=== PATIENT | female | born 1965 | race Caucasian/White ===

== ENCOUNTER → 2023-03-18 12:18 | Outpatient (CLI) | payer BC, SELFPAY ==
--- NOTE | ~2023-03-18 | US_ITS ---
EXAMINATION: US thyroid DATE: 03/18/2023 13:00 INDICATION: Thyroid nodule. TECHNIQUE: Multiple ultrasound images of the thyroid were obtained. COMPARISON: 12/19/2018 FINDINGS: The right thyroid lobe measures 4.0 x 1.3 x 1.1 cm. The left thyroid lobe measures 3.7 x 1.0 x 1.0 c m. There is normal echotexture and echogenicity throughout the thyroid gland. No discrete nodules id entified. Normal vascular flow is present. IMPRESSION: Normal thyroid ultrasound findings Reviewed, dictated and finalized at location K.
== END ==
DX: E04.1 Nontoxic single thyroid nodule (principal)
CPT/HCPCS: 76536